=== PATIENT | female | born 1975 | race Two or more races ===

== ENCOUNTER → 2017-07-31 | Day surgery (SDC) | payer OTHER | END | disposition home or self-care (01) | LOC: ADM 07-22 14:30 → AMB-ENDOS 09:23 | DX: K58.1 Irritable bowel syndrome with constipation (principal); Z12.11 Encounter for screening for malignant neoplasm of colon ==

== ENCOUNTER → 2018-02-02 | Outpatient (CLI) | payer OTHER | END | disposition home or self-care (01) | LOC: RAD 10:03 | DX: R10.84 Generalized abdominal pain (principal) ==

== ENCOUNTER 2021-03-06 11:14 | Emergency (ER) | payer OTHER ==
[~2021-03-06] VITALS: Ht 170.2 cm; Wt 60.8 kg
[2021-03-06] MEDS ORDERED: LISINOPRIL20 MG PO (11:33)
[2021-03-06] MEDS ORDERED: LIPITOR20 MG (11:33)
[2021-03-06] MEDS ORDERED: CLONAZEPAM2 MG PO (11:34)
== END 2021-03-06 18:58 | disposition home or self-care (01) ==
LOC: ER 11:14
DX: R10.32 Left lower quadrant pain (principal)

== ENCOUNTER 2021-10-21 13:40 | Inpatient (IN) | payer OTHER ==
[~2021-10-21] VITALS: Ht 170.2 cm; Wt 68.0 kg
[~2021-10-21 13:40] MED LIST: CARAFATE1 GM/10 ML PO; CLONAZEPAM2 MG PO; LIPITOR20 MG; LISINOPRIL20 MG PO; OMEPRAZOLE-BIC1 EAC1 PO
[2021-10-23] MEDS ORDERED: PAROXETINE HCL40 MG (08:09)
[2021-10-23] MEDS ORDERED: PANTOPRAZOLE SO40 MG (08:10)
[2021-10-23] MEDS ORDERED: FAMOTIDINE40 MG (08:10)
== END 2021-10-24 19:40 | DRG 470 ==
LOC: SURH 10-22 07:00 → O/R 10-22 08:08 → SURG 10-22 08:08 → SURH 10-22 14:30 → SURG 10-22 16:04
PROVIDERS: ADMIT Orthopaedic Surgery; ATTEND Orthopaedic Surgery
PROC: 0SRC0J9 Replacement of Right Knee Joint with Synthetic Substitute, Cemented, Open Approach (ICD-10-PCS; principal; 2021-10-22 07:00)
DX: M17.11 Unilateral primary osteoarthritis, right knee (principal); D62 Acute posthemorrhagic anemia; M85.661 Other cyst of bone, right lower leg; I10 Essential (primary) hypertension

== ENCOUNTER 2022-02-10 11:07 | Outpatient (CLI) | payer OTHER ==
[~2022-02-10 11:07] MED LIST changes: +FAMOTIDINE40 MG; +PANTOPRAZOLE SO40 MG; +PAROXETINE HCL40 MG
== END 2022-02-10 11:11 | disposition home or self-care (01) ==
LOC: RAD 11:07
PROVIDERS: ATTEND Orthopaedic Surgery
DX: M25.561 Pain in right knee (principal); M25.562 Pain in left knee

== ENCOUNTER 2023-08-10 12:57 | Outpatient (CLI) | payer OTHER | END 2023-08-10 12:59 | disposition home or self-care (01) | LOC: NUCLEAR 12:57 | PROVIDERS: ATTEND Orthopaedic Surgery | DX: M25.461 Effusion, right knee (principal); M25.561 Pain in right knee ==

== ENCOUNTER 2023-08-10 14:46 | Outpatient (CLI) | payer OTHER | END 2023-08-10 14:50 | disposition home or self-care (01) | LOC: RAD 14:46 | PROVIDERS: ATTEND Orthopaedic Surgery | DX: M25.561 Pain in right knee (principal); M25.562 Pain in left knee ==

== ENCOUNTER 2024-05-17 07:30 | Inpatient (IN) | payer OTHER ==
[~2024-05-17] VITALS: Ht 170.2 cm; Wt 74.4 kg
[2024-05-17 09:09] VITALS: BP 160/80
[2024-05-17] MEDS ORDERED: HORIZANT300 MG (09:13)
[2024-05-17] MEDS ORDERED: VASOFLEX (09:14)
[2024-05-17 10:29] LABS: URINE APPEARANCE Clear; URINE BILIRRUBIN Negative (NEGATIVE); URINE BLOOD Negative; URINE COLOR Yellow; URINE GLUCOSE Negative (NEGATIVE); URINE KETONE Negative (NEGATIVE); URINE LEUKOCYTE Negative; URINE NITRATE Positive; URINE PROTEIN Negative (NEGATIVE); URINE UROBILINOGEN 0.2 E.U./dl
[2024-05-17 10:34] LABS: URINE EPITHELIAL CELLS 7.4 uL (0.0-38.8); URINE RBC 3.3 uL (0.0-20.8); URINE WBC 4.1 uL (0.0-23.2)
[2024-05-17 10:34] LABS: HEMATOCRIT 41.5 % (36.0-45.00); HEMOGLOBIN 14.1 g/dL (12.0-15.00); MEAN CELL VOLUME 88.4 fL (80.00-100.00); MEAN CORPUSCULAR HGB CONC 33.9 g/dl (32.0-36.0); PLATELET COUNT 294 K/uL (150-450); RED BLOOD COUNT 4.69 M/uL (4.00-6.00)
[2024-05-17 11:03] LABS: URINE BACTERIA > 9821.5 uL (0.0-1933)
[2024-05-17 11:25] LABS: INR 0.98; PARTIAL THROMBOPLASTIN TIME 30.2 SECONDS (22.0-34.0); PROTHROMBIN TIME 10.7 SECONDS (9.0-11.5)
[2024-05-17 11:36] LABS: BILIRUBIN TOTAL 0.64 mg/dL (0.3-1.2); CALCIUM 9.4 mg/dL (8.5-10.1); CREATININE SERUM 0.78 mg/dL (0.55-1.02); GFR 78.17; GLOBULINA 3.9 G/DL (2.4-3.5); POTASSIUM 4.05 mEq/L (3.5-5.1); TOTAL PROTEIN 7.9 gm/dL (6.4-8.2)
[2024-05-24] MEDS ORDERED: OxyCODONE HCL/APAP UD (PERCOCET) PO PRN (10:30)
[2024-05-24] MEDS ORDERED: ONDANSETRON HCL 2 MG/ML VIAL IV PRN (10:30)
[2024-05-24] MEDS ORDERED: TRANEXAMIC ACID 100MG/1ML (1000MG) AMPUL IV ONE (10:31)
[2024-05-24] MEDS ORDERED: KETOROLAC TROMETHAMINE 60 MG VIAL IM ONE (10:31)
[2024-05-24] MEDS ORDERED: VANCOMYCIN HCL 1,000 MG VIAL ONE (11:14)
[2024-05-24] MEDS ORDERED: CEFAZOLIN SODIUM 1,000 MG VIAL IV SCH (12:00)
[2024-05-24] MEDS ORDERED: MORPHINE SULFATE 4 MG/ML CARTRIDGE IV SCH (12:00)
[2024-05-24] MEDS ORDERED: MORPHINE SULFATE 4 MG/ML VIAL IV ONE ×2 (12:15→14:30)
[2024-05-24] MEDS ORDERED: ENALAPRILAT DIHYDRATE 1.25 MG/ML VIAL IV PRN (15:45)
[2024-05-24] MEDS ORDERED: CLONAZEPAM 1 MG TABLET PO PRN (15:45)
[2024-05-24 17:20] VITALS: BP 141/70; O2SAT 100
[2024-05-24] MEDS ORDERED: ORPHENADRINE CITRATE 100 MG TABLET PO SCH (21:00)
[2024-05-24] MEDS ORDERED: GABAPENTIN 100 MG CAPSULE PO SCH (21:00)
[2024-05-25 03:21] VITALS: BP 109/81
[2024-05-25 07:13] LABS: HEMATOCRIT 38.6 % (36.0-45.00); HEMOGLOBIN 12.9 g/dL (12.0-15.00); MEAN CELL VOLUME 88.4 fL (80.00-100.00); MEAN CORPUSCULAR HEMOGLOBIN 29.6 pg (27.00-32.0); MEAN CORPUSCULAR HGB CONC 33.5 g/dl (32.0-36.0); PLATELET COUNT 257 K/uL (150-450); RED BLOOD COUNT 4.37 M/uL (4.00-6.00); RED CELL DISTRIBUTION WIDTH 12.8 % (11.5-14.5)
[2024-05-25 08:41] VITALS: BP 113/62
[2024-05-25] MEDS ORDERED: LISINOPRIL 20 MG TABLET PO SCH (09:00)
[2024-05-25] MEDS ORDERED: PAROXETINE HCL 20 MG TABLET PO SCH (09:00)
[2024-05-25] MEDS ORDERED: APIXABAN 2.5 MG TABLET PO SCH (09:00)
[2024-05-25 16:00] VITALS: BP 143/70; O2SAT 98
[2024-05-25] MEDS ORDERED: CLONAZEPAM 1 MG TABLET PO STA (17:03)
[2024-05-26] VITALS: BP 122/66; O2SAT 95
[2024-05-26 07:04] LABS: HEMATOCRIT 38.7 % (36.0-45.00); HEMOGLOBIN 13.3 g/dL (12.0-15.00); MEAN CELL VOLUME 87.9 fL (80.00-100.00); MEAN CORPUSCULAR HEMOGLOBIN 30.2 pg (27.00-32.0); MEAN CORPUSCULAR HGB CONC 34.3 g/dl (32.0-36.0); PLATELET COUNT 285 K/uL (150-450); RED CELL DISTRIBUTION WIDTH 12.8 % (11.5-14.5)
[2024-05-26 08:06] VITALS: BP 153/77; O2SAT 93
[2024-05-26] MEDS ORDERED: CLONAZEPAM 1 MG TABLET PO SCH (09:00)
[2024-05-26] MEDS ORDERED: OxyCODONE HCL/APAP UD (PERCOCET) PO SCH (12:00)
[2024-05-26 15:48] VITALS: BP 135/74; O2SAT 98
[2024-05-27 00:41] VITALS: BP 121/62; O2SAT 100
[2024-05-27 08:00] VITALS: BP 148/84; O2SAT 95
== END 2024-05-27 14:23 | disposition home or self-care (01) | DRG 470 ==
LOC: O/R 05-24 06:15 → SURH 05-24 07:00
PROVIDERS: ADMIT Orthopaedic Surgery; ATTEND Orthopaedic Surgery
PROC: 0SRC0JZ Replacement of Right Knee Joint with Synthetic Substitute, Open Approach (ICD-10-PCS; principal; 2024-05-24 07:00)
DX: T84.023A Instability of internal left knee prosthesis, initial encounter (principal); M86.051 Acute hematogenous osteomyelitis, right femur; M85.661 Other cyst of bone, right lower leg; I10 Essential (primary) hypertension

== ENCOUNTER 2024-12-27 08:18 | Outpatient (CLI) | payer OTHER ==
[~2024-12-27 08:18] MED LIST changes: +HORIZANT300 MG; +VASOFLEX
== END 2024-12-27 08:20 | disposition home or self-care (01) ==
LOC: RAD 08:18
DX: M17.9 Osteoarthritis of knee, unspecified (principal); M25.569 Pain in unspecified knee

== ENCOUNTER 2025-01-31 07:30 | Inpatient (IN) | payer OTHER ==
[~2025-01-31] VITALS: Ht 213.4 cm; Wt 71.2 kg
[2025-01-31 08:55] VITALS: BP 139/77
[2025-01-31 09:01] VITALS: BP 159/87
[2025-01-31 09:05] LABS: URINE APPEARANCE Clear; URINE BILIRRUBIN Negative (NEGATIVE); URINE BLOOD Negative; URINE COLOR Yellow; URINE GLUCOSE Negative (NEGATIVE); URINE KETONE Negative (NEGATIVE); URINE LEUKOCYTE Small; URINE NITRATE Negative; URINE PROTEIN Negative (NEGATIVE); URINE UROBILINOGEN 0.2 E.U./dl
[2025-01-31 09:06] LABS: BASO % 0.7 % (0.1-1.2); EOS # 0.24 (0.04-0.54); EOS % 3.9 % (0.7-7.0); LYMPH # 2.16 (1.18-3.74); LYMPH % 35.2 % (19.3-53.1); MEAN PLATELET VOLUME 11.60 fl (9.4-12.4); MONO # 0.50 (0.24-0.82); MONO % 8.2 % (4.7-12.5); NEUT # 3.18 (1.56-6.13); NEUT % 51.8 % (34.0-71.1); RED CELL DISTRIBUTION WIDTH 13.1 % (11.6-14.4)
[2025-01-31 09:07] LABS: URINE BACTERIA 716.2 uL (0.0-1933); URINE EPITHELIAL CELLS 36.8 uL (0.0-38.8); URINE RBC 20.8 uL (0.0-20.8); URINE WBC 12.2 uL (0.0-23.2)
[2025-01-31 09:25] LABS: URINE CAST 0.14 uL (0.0-1.40)
[2025-01-31 09:26] LABS: INR < 0.93
[2025-01-31 09:46] LABS: ALT/SGPT 29.0 U/L (12-78); AST/SGOT 20.0 U/L (15-37); BILIRUBIN TOTAL 0.39 mg/dL (0.3-1.2); BUN CREA RATIO 26.0 (7.0-25.0); CREATININE SERUM 0.72 mg/dL (0.55-1.02); GFR 85.4; GLOBULINA 3.7 G/DL (2.4-3.5); GLUCOSE FASTING 101.0 mg/dL (65-100); OSMOLALITY SERUM 293.0 MOSM/KG (275-295)
[2025-02-07] MEDS ORDERED: CEFAZOLIN SODIUM 1,000 MG VIAL ONE ×2 (08:11→14:08)
[2025-02-07] MEDS ORDERED: TRANEXAMIC ACID 100MG/1ML (1000MG) AMPUL ONE (09:36)
[2025-02-07] MEDS ORDERED: KETOROLAC TROMETHAMINE 60 MG VIAL IM ONE (09:50)
[2025-02-07] MEDS ORDERED: VANCOMYCIN HCL 1,000 MG VIAL ONE (09:51)
[2025-02-07] MEDS ORDERED: BUPIVACAINE HCL/MPF 0.5% 30ML VIAL ONE (09:51)
[2025-02-07] MEDS ORDERED: POVIDONE-IODINE 118 ML BOTT TOP ONE (09:51)
[2025-02-07] MEDS ORDERED: LIDOCAINE HCL 1%/EPINEPHRINE 20ML VIAL IJ ONE (09:52)
[2025-02-07] MEDS ORDERED: ISOPROPYL ALCOHOL 30 ML OUNCE TOP ONE (09:52)
[2025-02-07] MEDS ORDERED: ONDANSETRON HCL 2 MG/ML VIAL IV PRN (10:00)
[2025-02-07] MEDS ORDERED: MORPHINE SULFATE 4 MG/ML CARTRIDGE IV ONE (11:30)
[2025-02-07] MEDS ORDERED: CEFAZOLIN SODIUM 1,000 MG VIAL IV SCH (12:00)
[2025-02-07] MEDS ORDERED: MORPHINE SULFATE 4 MG/ML CARTRIDGE IV SCH (12:00)
[2025-02-07] MEDS ORDERED: OxyCODONE HCL 5 MG TABLET (ROXICODONE) PO SCH (12:00)
[2025-02-07 20:00] VITALS: BP 139/77; O2SAT 98
[2025-02-07] MEDS ORDERED: ORPHENADRINE CITRATE 100 MG TABLET PO SCH (21:00)
[2025-02-07] MEDS ORDERED: GABAPENTIN 100 MG CAPSULE PO SCH (21:00)
[2025-02-08 00:30] VITALS: BP 106/67; O2SAT 100
[2025-02-08 07:42] LABS: BASO % 0.3 % (0.1-1.2); EOS # 0.21 (0.04-0.54); EOS % 2.9 % (0.7-7.0); LYMPH # 1.01 (1.18-3.74); LYMPH % 13.8 % (19.3-53.1); MEAN PLATELET VOLUME 10.50 fl (9.4-12.4); MONO # 0.87 (0.24-0.82); MONO % 11.9 % (4.7-12.5); NEUT # 5.17 (1.56-6.13); NEUT % 70.8 % (34.0-71.1); RED CELL DISTRIBUTION WIDTH 13.3 % (11.6-14.4)
[2025-02-08 07:55] VITALS: BP 123/81; O2SAT 96
[2025-02-08] MEDS ORDERED: MORPHINE SULFATE 4 MG/ML CARTRIDGE IV SCH (10:15)
[2025-02-08 12:56] LABS: BASO % 0.2 % (0.1-1.2); EOS # 0.23 (0.04-0.54); EOS % 2.5 % (0.7-7.0); LYMPH # 1.37 (1.18-3.74); LYMPH % 14.8 % (19.3-53.1); MEAN PLATELET VOLUME 10.30 fl (9.4-12.4); MONO # 0.96 (0.24-0.82); MONO % 10.4 % (4.7-12.5); NEUT # 6.63 (1.56-6.13); NEUT % 71.9 % (34.0-71.1); RED CELL DISTRIBUTION WIDTH 13.2 % (11.6-14.4)
[2025-02-08] MEDS ORDERED: OxyCODONE HCL 5 MG TABLET (ROXICODONE) PO SCH (13:00)
[2025-02-08 13:08] LABS: COVID-19 AG NEGATIVE (NEGATIVE)
[2025-02-08] MEDS ORDERED: TAMSULOSIN HCL 0.4 MG CAP PO NR (13:45)
[2025-02-08] MEDS ORDERED: 0.9 % SODIUM CHLORIDE 1,000 ML IV SCH (13:45)
[2025-02-08 16:55] VITALS: BP 118/85; O2SAT 95
[2025-02-08] MEDS ORDERED: CLONAZEPAM 1 MG TABLET PO SCH (17:00)
[2025-02-08] MEDS ORDERED: Cyanocobalamin/Mecobalamin 1 TAB.SL SL SCH (17:00)
[2025-02-08] MEDS ORDERED: SOD FERRIC GLUC COMPLX/SUCROSE 62.5 MG/5 ML AMPUL IV SCH (17:00)
[2025-02-08] MEDS ORDERED: ENOXAPARIN SODIUM 30 MG/0.3 ML SYRINGE SUBCUTANEO SCH (17:00)
[2025-02-09 00:55] VITALS: BP 119/79; O2SAT 97
[2025-02-09 06:19] LABS: BASO % 0.2 % (0.1-1.2); EOS # 0.27 (0.04-0.54); EOS % 2.8 % (0.7-7.0); LYMPH # 1.59 (1.18-3.74); LYMPH % 16.2 % (19.3-53.1); MEAN PLATELET VOLUME 10.70 fl (9.4-12.4); MONO # 1.12 (0.24-0.82); MONO % 11.4 % (4.7-12.5); NEUT # 6.77 (1.56-6.13); NEUT % 69.0 % (34.0-71.1); RED CELL DISTRIBUTION WIDTH 13.2 % (11.6-14.4)
[2025-02-09 08:00] VITALS: BP 117/83; O2SAT 97
[2025-02-09] MEDS ORDERED: NORFLEX100MG PO (12:04)
[2025-02-09] MEDS ORDERED: OXYCODONE HCL5 MG PO (12:05)
[2025-02-09] MEDS ORDERED: GABAPENTIN100 MG PO (12:05)
[2025-02-09] MEDS ORDERED: ELIQUIS2.5 MG PO (12:06)
== END 2025-02-09 16:51 | disposition home or self-care (01) | DRG 467 ==
LOC: O/R 02-07 06:00 → SURG 02-07 06:00 → SURH 02-07 07:00 → SURG 02-07 15:36
PROVIDERS: Internal Medicine; ADMIT Orthopaedic Surgery; ATTEND Orthopaedic Surgery
PROC: 0QUD0JZ Supplement Right Patella with Synthetic Substitute, Open Approach (ICD-10-PCS; 2025-02-07)
PROC: 0QUD0KZ Supplement Right Patella with Nonautologous Tissue Substitute, Open Approach (ICD-10-PCS; 2025-02-07)
PROC: 0SWC0JZ Revision of Synthetic Substitute in Right Knee Joint, Open Approach (ICD-10-PCS; principal; 2025-02-07 07:00)
DX: T84.89XA Other specified complication of internal orthopedic prosthetic devices, implants and grafts, initial encounter (principal); D62 Acute posthemorrhagic anemia; M86.051 Acute hematogenous osteomyelitis, right femur; M17.11 Unilateral primary osteoarthritis, right knee; M65.861 Other synovitis and tenosynovitis, right lower leg; M85.661 Other cyst of bone, right lower leg; M25.361 Other instability, right knee; Z96.651 Presence of right artificial knee joint; F31.9 Bipolar disorder, unspecified; Y65.8 Other specified misadventures during surgical and medical care